=== PATIENT | female | born 1980 | race Caucasian/White ===

== ENCOUNTER 2019-01-25 21:57 | Emergency (ER) | payer OTHER ==
[~2019-01-25] VITALS: Ht 175.3 cm; Wt 56.2 kg
[2019-01-25 22:35] VITALS: BP 108/70
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
[2019-01-25] MEDS ORDERED: KETOROLAC TROMETHAMINE INJ 60 MG/2 ML VIAL IM ONE ×2 (23:11→23:30)
--- NOTE | 2019-01-25 23:18 | NUR ---
URINE COLLECTED AND SEN TO LAB
--- NOTE | 2019-01-25 23:28 | NUR ---
XRAYS AT BEDSIDE
--- NOTE | 2019-01-25 23:58 | NUR ---
Patient discharged to home in stable condition. Written and verbal after care instructions given. Patient verbalizes understanding of instruction. Pt ambulatory with a steady gait
== END 2019-01-26 | disposition home or self-care (01) ==
LOC: ER 22:02
DX: M25.572 Pain in left ankle and joints of left foot (principal); G89.4 Chronic pain syndrome; Z98.890 Other specified postprocedural states; Z60.2 Problems related to living alone; V49.69XA Unspecified car occupant injured in collision with other motor vehicles in traffic accident, initial encounter; Y93.89 Activity, other specified; Y92.413 State road as the place of occurrence of the external cause; Y99.8 Other external cause status
CPT/HCPCS: 73610; 84703; 96372; 99284; J1885

== ENCOUNTER 2020-04-02 04:47 | Emergency (ER) | payer OTHER ==
[~2020-04-02] VITALS: Ht 175.3 cm; Wt 61.2 kg
--- NOTE | 2020-04-02 05:09 | NUR ---
urine collected. sent to lab
--- NOTE | 2020-04-02 05:12 | NUR ---
dr. dia at bedside for eval. pt urine collected. sent to lab
--- NOTE | 2020-04-02 05:22 | NUR ---
CUSTODIAL FOREMAN AT BEDSIDE FOR BLOOD DRAW
[2020-04-02 05:35] LABS: BASOPHILS % (AUTO) 0.4 % (0.0-2.0); EOSINOPHILS % (AUTO) 2.1 % (0.0-6.0); HEMATOCRIT 39 % (33-45); HEMOGLOBIN 12.7 g/dL (11.5-14.8); LYMPHOCYTES # (AUTO) 1.3 /CMM (0.8-4.8); LYMPHOCYTES % (AUTO) 32.5 % (20.0-44.0); MEAN CORPUSCULAR HGB CONC 33 g/dl (31.0-36.0); MEAN CORPUSCULAR VOLUME 96 fL (82-100); MONOCYTES # (AUTO) 0.4 /CMM (0.1-1.30); MONOCYTES % (AUTO) 11.2 % (2.0-12.0); NEUTROPHILS # (AUTO) 2.2 /CMM (1.8-8.9); NEUTROPHILS % (AUTO) 53.8 % (43.0-81.0); PLATELET COUNT (AUTO) 224 /CMM (150-450); RED BLOOD CELL COUNT(AUTO) 4.02 MIL/uL (4.0-5.2)
[2020-04-02 05:38] LABS: APPEARANCE,URINE CLEAR (CLEAR); BILIRUBIN,URINE NEGATIVE (NEGATIVE); BLOOD, URINE NEGATIVE Ery/uL (NEGATIVE); COLOR,URINE YELLOW (YELLOW); KETONES,URINE NEGATIVE (NEGATIVE); LEUKOCYTE ESTERASE ,URINE NEGATIVE (NEGATIVE); NITRITE, URINE NEGATIVE (NEGATIVE); PROTEIN,URINE NEGATIVE (NEGATIVE); UGLUCOSE NEGATIVE (NEGATIVE); UROBILINOGEN,URINE 0.2 EU/dL (0.2)
[2020-04-02 05:53] LABS: ALBUMIN 3.6 g/dL (3.4-5.0); BILIRUBIN,DIRECT 0.1 mg/dL (0.0-0.2); BILIRUBIN,TOTAL 0.2 mg/dL (0.2-1.0); CALCIUM, SERUM 8.3 mg/dL (8.5-10.1); CREATININE 0.8 mg/dL (0.6-1.3); POTASSIUM 3.9 mmol/L (3.5-5.1); TOTAL PROTEIN, SERUM 7.3 g/dL (6.4-8.2)
--- NOTE | 2020-04-02 05:58 | NUR ---
QUALITY CONTROL LEAD TO DR. MIRANDA FOR PELVIC EXAM. WET MOUNT COLLECTED AND SENT TO LAB
--- NOTE | 2020-04-02 06:05 | NUR ---
JOLIE TECH AT BEDSIDE FOR PELVIC JOLIE.
--- NOTE | 2020-04-02 06:26 | NUR ---
Patient discharged to home in stable condition. Written and verbal after care instructions given. Patient verbalizes understanding of instruction. ambulatory with a steady gait noted. pt aaox4 no acute distress noted, resp even and unlabored.
[2020-04-02 06:28] VITALS: BP 124/62
== END 2020-04-02 06:29 | disposition home or self-care (01) ==
LOC: ER 04:47
DX: N94.10 Unspecified dyspareunia (principal); R10.2 Pelvic and perineal pain; R30.0 Dysuria; G89.4 Chronic pain syndrome; Z98.890 Other specified postprocedural states; Z60.2 Problems related to living alone
CPT/HCPCS: 36415; 76856-TC; 80048-TC; 80076-TC; 81000-TC; 84703-TC; 85025-TC; 85730-TC; 87086-TC; 87210-TC